=== PATIENT | male | born 1985 | race Caucasian/White ===

== ENCOUNTER 2020-11-06 19:38 | Inpatient (IN) | payer MEDICAID, OTHER ==
[~2020-11-06] VITALS: Ht 175.3 cm; Wt 84.8 kg
[~2020-11-06 19:38] MED LIST: FLUO20CA23 PO; LORA-446 PO; ZOLP10TA PO
--- NOTE | 2020-11-06 19:39 | NUR ---
PT ANA FROM [facility], PT STATES, "IM JUST HAVING A BAD DAY", PT STATES A DOG CAME UP TO HIS FENCE AND HE DIDNT LIKE IT SO PT KICKED THE FENCE, PT STATES HE HAS BEEN DRINKING FOR THE LAST 4-5 DAYS, PT STATES HE HAS BEEN DRINKING A FIFTH A DAY, PT STATES THAT HE TOOK 5MG OF ATIVAN AT HOME, PT ALSO COMPLAING OF ABDOMINAL PAIN, PT DENIES SI/SH AT THIS TIME
[2020-11-06] MEDS ORDERED: SODIUM CHLORIDE 0.9% 1,000ML IVBOLUS ONE ×2 (20:00→22:00)
[2020-11-06 20:13] LABS: BASOPHILS % (AUTO) 1 % (0-1); EOSINOPHILS % (AUTO) 1 % (1-7); LYMPHOCYTES % (AUTO) 29 % (22-44); MEAN CORPUSCULAR HEMOGLOBIN 32.4 pg (27.5-34.5); MEAN CORPUSCULAR HGB CONC 34.5 g/dL (33.2-36.2); MEAN PLATELET VOLUME 7.9 fL (7.4-10.4); MONOCYTES % (AUTO) 9 % (2-9); NEUTROPHILS % (AUTO) 61 % (42-75); PLATELET COUNT 172 x10^3/uL (130-400); RED BLOOD COUNT 4.98 x10^6/uL (4.38-5.82); RED CELL DISTRIBUTION WIDTH 14.1 % (9.4-14.8)
--- NOTE | 2020-11-06 20:16 | NUR ---
PT LAYING IN BED, A/OX4, ALL NEEDS IN REACH, CALL LIGHT IN REACH, NAD AT THIS TIME, VSS
[2020-11-06 20:25] LABS: ALANINE AMINOTRANSFERASE 53 U/L (12-78); ALBUMIN 4.2 g/dL (3.4-5.0); ANION GAP 16 mmol/L (5-15); CALCIUM 8.7 mg/dL (8.5-10.1); CHLORIDE 101 mmol/L (98-107)
[2020-11-06 20:27] LABS: ALKALINE PHOSPHATASE 53 U/L (45-117); BILIRUBIN,TOTAL 0.6 mg/dL (0.2-1.0); TOTAL PROTEIN 7.6 g/dL (6.4-8.2)
--- NOTE | 2020-11-06 21:11 | NUR ---
PT LAYING IN BED, A/OX4, ALL NEEDS IN REACH, CALL LIGHT IN REACH, NAD AT THIS TIME, VSS
[2020-11-06] MEDS ORDERED: ONDANSETRON 2MG/ML, 2ML ONE (21:36)
[2020-11-06] MEDS ORDERED: MORPHINE SULFATE 4 MG/ML, 1ML ONE ×2 (21:36→22:57)
[2020-11-06] MEDS: MORPHINE SULFATE 4 MG/ML, 1ML IVPush PRN (21:38)
[2020-11-06] MEDS ORDERED: ONDANSETRON 2MG/ML, 2ML IVPush ONE ×2 (22:00→23:30)
--- NOTE | 2020-11-06 22:03 | NUR ---
PT LAYING IN BED, A/OX4, ALL NEEDS IN REACH, CALL LIGHT IN REACH, NAD AT THIS TIME
--- NOTE | 2020-11-06 23:01 | NUR ---
PT LAYING IN BED, A/OX3, ALL NEEDS IN REACH, CALL LIGHT IN REACH, VSS, NAD AT THIS TIME, PT MEDICATED WITH SECOND DOSE OF MORPHINE FOR PAIN
[2020-11-06] MEDS ORDERED: MORPHINE SULFATE 4 MG/ML, 1ML IVPush PRN (23:30)
[2020-11-07] MEDS ORDERED: ACETAMINOPHEN 325 MG TABLET PO PRN
[2020-11-07] MEDS ORDERED: FOLIC ACID 5 MG/ML IM ONE
[2020-11-07] MEDS ORDERED: LABETALOL 5MG/ML, 20ML IVPush PRN
[2020-11-07] MEDS ORDERED: LORazepam 2 MG/ML, 1ML IV PRN ×5
[2020-11-07] MEDS: MORPHINE SULFATE 4 MG/ML, 1ML IVPush PRN (00:06)
[2020-11-07] MEDS: LACTATED RINGERS 1,000 ML IV SCH ×4 (00:23→19:35)
[2020-11-07] MEDS: morphine SULFATE 10 MG/ML, 1ML IVPush PRN ×10 (00:23→23:18)
[2020-11-07 01:36] VITALS: BP 127/74
[2020-11-07] MEDS ORDERED: ESCI20TA10 PO (02:54)
[2020-11-07] MEDS: ONDANSETRON 2MG/ML, 2ML IVPush PRN ×4 (03:34→23:18)
[2020-11-07 06:32] LABS: BASOPHILS % (AUTO) 1 % (0-1); EOSINOPHILS % (AUTO) 1 % (1-7); LYMPHOCYTES % (AUTO) 42 % (22-44); MEAN CORPUSCULAR HEMOGLOBIN 31.9 pg (27.5-34.5); MEAN CORPUSCULAR HGB CONC 33.5 g/dL (33.2-36.2); MEAN PLATELET VOLUME 8.1 fL (7.4-10.4); MONOCYTES % (AUTO) 9 % (2-9); NEUTROPHILS % (AUTO) 47 % (42-75); PLATELET COUNT 140 x10^3/uL (130-400); RED BLOOD COUNT 4.28 x10^6/uL (4.38-5.82)
[2020-11-07 06:43] LABS: ANION GAP 9 mmol/L (5-15); CALCIUM 7.7 mg/dL (8.5-10.1); CHLORIDE 105 mmol/L (98-107); CREATININE 0.77 mg/dL (0.7-1.3)
[2020-11-07 09:00] VITALS: BP 121/78
[2020-11-07] MEDS: MULTIVITAMINS/MINERALS TABLET PO SCH (09:00)
[2020-11-07] MEDS: THIAMINE 100 MG in DEXTROSE 5% 50 ML IVPB SCH (09:36)
[2020-11-07 12:50] VITALS: BP 128/75
[2020-11-07] MEDS: ENOXAPARIN 40 MG/0.4 ML SQ SCH (14:37)
[2020-11-07 18:51] VITALS: BP 167/80
[2020-11-08 00:50] VITALS: BP 120/73
[2020-11-08] MEDS: LACTATED RINGERS 1,000 ML IV SCH ×2 (02:28→09:52)
[2020-11-08 05:57] LABS: BASOPHILS % (AUTO) 1 % (0-1); EOSINOPHILS % (AUTO) 4 % (1-7); LYMPHOCYTES % (AUTO) 36 % (22-44); MEAN CORPUSCULAR HEMOGLOBIN 32.2 pg (27.5-34.5); MEAN CORPUSCULAR HGB CONC 34.1 g/dL (33.2-36.2); MEAN PLATELET VOLUME 8.2 fL (7.4-10.4); MONOCYTES % (AUTO) 13 % (2-9); NEUTROPHILS % (AUTO) 47 % (42-75); PLATELET COUNT 103 x10^3/uL (130-400); RED BLOOD COUNT 4.32 x10^6/uL (4.38-5.82)
[2020-11-08 06:09] LABS: ALBUMIN 3.1 g/dL (3.4-5.0); ANION GAP 7 mmol/L (5-15); CALCIUM 8.2 mg/dL (8.5-10.1); CHLORIDE 100 mmol/L (98-107)
[2020-11-08 06:12] LABS: ALANINE AMINOTRANSFERASE 49 U/L (12-78); ALKALINE PHOSPHATASE 50 U/L (45-117); BILIRUBIN,TOTAL 1.1 mg/dL (0.2-1.0); CREATININE 0.75 mg/dL (0.7-1.3); TOTAL PROTEIN 5.7 g/dL (6.4-8.2)
[2020-11-08] MEDS: morphine SULFATE 10 MG/ML, 1ML IVPush PRN (06:19)
[2020-11-08] MEDS ORDERED: POTASSIUM CHLORIDE 20 MEQ TAB.ER.PRT PO ONE (07:00)
[2020-11-08 07:36] VITALS: BP 136/89
[2020-11-08] MEDS: MULTIVITAMINS/MINERALS TABLET PO SCH (09:00)
[2020-11-08] MEDS: THIAMINE 100 MG in DEXTROSE 5% 50 ML IVPB SCH (09:51)
[2020-11-08 13:04] VITALS: BP 135/87
[2020-11-08] MEDS: ENOXAPARIN 40 MG/0.4 ML SQ SCH (13:30)
[2020-11-08] MEDS ORDERED: SERTRALINE 50MG TABLET PO ONE (14:00)
[2020-11-08] MEDS ORDERED: NALTREXONE HCL 50 MG TABLET PO ONE (14:00)
[2020-11-08] MEDS ORDERED: QUET25TA7 PO (15:31)
[2020-11-08] MEDS ORDERED: SERT50TA28 PO (15:31)
[2020-11-08] MEDS ORDERED: NALT50TA PO (15:31)
[2020-11-08] MEDS ORDERED: QUETIAPINE 25MG TABLET PO SCH (21:00)
[2020-11-09] MEDS ORDERED: NALTREXONE HCL 50 MG TABLET PO SCH (09:00)
[2020-11-09] MEDS ORDERED: SERTRALINE 50MG TABLET PO SCH (09:00)
== END 2020-11-08 17:13 | disposition home or self-care (01) | DRG 440 ==
LOC: ED 23:58 → EDIP 23:59 → 3N 11-07 00:03
PROVIDERS: ADMIT Family Medicine; ATTEND Family Medicine
DX: K85.20 Alcohol induced acute pancreatitis without necrosis or infection (principal); F10.229 Alcohol dependence with intoxication, unspecified; F12.90 Cannabis use, unspecified, uncomplicated; F32.9 Major depressive disorder, single episode, unspecified; F41.9 Anxiety disorder, unspecified; R73.9 Hyperglycemia, unspecified; R74.01 Elevation of levels of liver transaminase levels; Z82.5 Family history of asthma and other chronic lower respiratory diseases
CPT/HCPCS: 36415; 80048; 80053; 80320; 83690; 85025; 96361; 96374; G0378; J1650; J2405; J3411; G0480; J2060; J2270; J7030; J7120